=== PATIENT | male | born 1985 | race African-American/Black ===

== ENCOUNTER 2024-01-20 18:55 | Inpatient (IN) | payer SELFPAY ==
[~2024-01-20] VITALS: Wt 90.7 kg
[2024-01-20 18:58] VITALS: BP 147/85
[2024-01-20] MEDS ORDERED: Ondansetron Hydrochloride 4 MG TAB SL ONE (19:25)
[2024-01-20 19:31] LABS: BASO # 0.1 10*3/uL (0.0-0.1); BASO % 0.6 % (0.0-1.0); EOS # 0.2 10*3/uL (0.0-0.4); EOS % 1.9 % (1.0-4.0); HEMATOCRIT 47.1 % (42.0-52.0); LYMPH # 2.8 10*3/uL (1.3-4.4); LYMPH % 34.1 % (27.0-41.0); MEAN CELL VOLUME 83.5 fl (80.0-94.0); MEAN CORPUSCULAR HGB CONC 33.5 g/dl (33.0-37.0); MEAN PLATELET VOLUME 10.2 fl (9.6-12.3); MONO # 0.8 10*3/uL (0.1-1.0); MONO % 9.4 % (3.0-9.0); NEUT # 4.3 10*3/uL (2.3-7.9); NEUT % 53.6 % (47.0-73.0); PLATELET COUNT AUTOMATED 283 10*3/uL (130-400); RED BLOOD COUNT 5.64 10*6/uL (4.50-5.90); RED CELL DISTRI WIDTH 12.9 % (0-14.5); WHITE BLOOD COUNT 8.1 10*3/uL (4.8-10.8)
[2024-01-20 19:48] LABS: ALKALINE PHOSPHATASE 111 U/L (46-116); BUN 16 mg/dl (9-23); CHLORIDE 95 mmol/L (98-107); POTASSIUM 3.8 mmol/L (3.4-5.1); SGPT/ALT 25 U/L (5-49)
[2024-01-20] MEDS ORDERED: SODIUM CHLORIDE 0.9% 1,000 ML IV ONE (19:55)
[2024-01-20 19:58] LABS: BILIRUBIN Negative (Negative); BLOOD Negative (Negative); CLARITY Cloudy (Clear); COLOR Yellow (Yellow); GLUCOSE Negative (Negative); KETONE Negative (Negative); LEUKO ESTERASE Negative (Negative); NITRITE Negative (Negative); PH 6.5 (4.5-8.0); UROBILINOGEN 0.2 E.U./dl (0.0-1.0)
[2024-01-20 20:15] VITALS: BP 161/95
[2024-01-20 20:23] LABS: BACTERIA 2+
[2024-01-20] MEDS ORDERED: FAMOTIDINE 50 ML IV ONE (20:50)
[2024-01-20] MEDS ORDERED: fentaNYL CITRATE 100 MCG/2 ML VIAL IV ONE (21:25)
[2024-01-20] MEDS ORDERED: IOHEXOL 300 MG/ML 100 ML VIAL IV ONE (21:35)
[2024-01-20 21:41] LABS: URINE AMPHETAMINES Negative (1000ng/ml); URINE BARBITURATES Negative (200ng/ml); URINE BENZODIAZEPINES Negative (200ng/ml); URINE CANNABINOIDS (THC) Negative (50ng/ml); URINE COCAINE Negative (300ng/ml); URINE METHADONE Negative (300ng/ml); URINE OPIATES Negative (300ng/ml); URINE PHENCYCLIDINE Negative (25ng/ml)
[2024-01-20] MEDS ORDERED: IOHEXOL 300 MG/ML 100 ML VIAL ONE (21:58)
[2024-01-21] MEDS ORDERED: Pantoprazole Sodium 40 MG VIAL IV ONE (00:15)
[2024-01-21] MEDS ORDERED: LEVOFLOXACIN 100 ML IV ONE (00:40)
[2024-01-21] MEDS ORDERED: BISACODYL 10 MG SUPP R PRN (01:55)
[2024-01-21] MEDS ORDERED: BISACODYL 5 MG TAB PO PRN (01:55)
[2024-01-21] MEDS ORDERED: ACETAMINOPHEN 325 MG TAB PO PRN (01:55)
[2024-01-21] MEDS ORDERED: ACETAMINOPHEN 650 MG SUPP R PRN (01:55)
[2024-01-21] MEDS ORDERED: Acetaminophen/Hydrocodone 5 MG/325 MG TABLET PO PRN (01:55)
[2024-01-21] MEDS ORDERED: Ondansetron Hydrochloride 4 MG/2 ML VIAL IV PRN (01:55)
[2024-01-21] MEDS ORDERED: Magnesium Hydroxide 30 ML UDC PO PRN (01:55)
[2024-01-21 02:01] VITALS: BP 145/82
[2024-01-21] MEDS ORDERED: Dicyclomine Hydrochloride 20 MG/10 ML OSYR PO STA (02:35)
[2024-01-21] MEDS ORDERED: Lidocaine Hydrochloride 15 ML UDC PO STA (02:35)
[2024-01-21] MEDS ORDERED: SODIUM CHLORIDE 0.9% 1,000 ML IV SCH (02:35)
[2024-01-21] MEDS ORDERED: MG-AL HYDROXIDE/SIMETICONE 30 ML UDC PO STA (02:35)
[2024-01-21] MEDS ORDERED: CIPROFLOXACIN 200 ML IV SCH ×2 (02:40→15:00)
[2024-01-21] MEDS ORDERED: METRONIDAZOLE 100 ML IV SCH (02:40)
[2024-01-21] MEDS ORDERED: Pantoprazole Sodium 40 MG VIAL IV SCH (06:00)
[2024-01-21 06:07] LABS: BASO # 0.1 10*3/uL (0.0-0.1); BASO % 0.7 % (0.0-1.0); EOS # 0.1 10*3/uL (0.0-0.4); EOS % 1.8 % (1.0-4.0); HEMATOCRIT 43.3 % (42.0-52.0); LYMPH # 2.2 10*3/uL (1.3-4.4); LYMPH % 29.9 % (27.0-41.0); MEAN CELL VOLUME 84.1 fl (80.0-94.0); MEAN CORPUSCULAR HGB 28.2 pg (27.0-31.0); MEAN CORPUSCULAR HGB CONC 33.5 g/dl (33.0-37.0); MEAN PLATELET VOLUME 10.7 fl (9.6-12.3); MONO # 0.7 10*3/uL (0.1-1.0); NEUT # 4.3 10*3/uL (2.3-7.9); NEUT % 57.3 % (47.0-73.0); PLATELET COUNT AUTOMATED 247 10*3/uL (130-400); RED BLOOD COUNT 5.15 10*6/uL (4.50-5.90); RED CELL DISTRI WIDTH 12.9 % (0-14.5); WHITE BLOOD COUNT 7.4 10*3/uL (4.8-10.8)
[2024-01-21 06:08] LABS: ALKALINE PHOSPHATASE 100 U/L (46-116); BUN 15 mg/dl (9-23); CHLORIDE 101 mmol/L (98-107); CHOLESTEROL 128 mg/dL (<200); LDL CHOLESTEROL 79 mg/dL (9-159); POTASSIUM 3.7 mmol/L (3.4-5.1); SGPT/ALT 21 U/L (5-49); TOTAL PROTEIN 6.3 gm/dL (6.0-8.0); TRIGLYCERIDES 76 mg/dl (<150)
[2024-01-21 07:04] VITALS: BP 140/65
[2024-01-21 07:51] LABS: VITAMIN D, 25-HYDROXY 23.5 ng/mL (30-100)
[2024-01-21] MEDS ORDERED: Enoxaparin Sodium 40 MG/0.4 ML SYR SC SCH (10:00)
[2024-01-21 10:48] VITALS: BP 139/69
[2024-01-21] MEDS ORDERED: CIPRO500 MG PO (16:09)
[2024-01-21] MEDS ORDERED: PROTONIX40 MG PO (16:09)
[2024-01-21] MEDS ORDERED: METRONIDAZOLE500 M1 PO (16:09)
[2024-01-21] MEDS ORDERED: VITAMIN D350 MC2 PO (16:40)
== END 2024-01-21 17:30 | disposition home or self-care (01) | DRG 395 ==
LOC: ED 18:55 → EDHOLD 01-21 00:45
PROVIDERS: Emergency Medicine; Student in an Organized Health Care Education/Training Program; ADMIT Family Medicine; ATTEND Family Medicine
DX: K62.89 Other specified diseases of anus and rectum (principal); E83.52 Hypercalcemia; K21.9 Gastro-esophageal reflux disease without esophagitis; F17.210 Nicotine dependence, cigarettes, uncomplicated; Z71.6 Tobacco abuse counseling